=== PATIENT | male | born 1990 | race Hispanic/Latino ===

== ENCOUNTER 2019-09-19 08:36 | Emergency (ER) | payer OTHER, SELFPAY ==
[2019-09-19] MEDS ORDERED: Ondansetron ODT 4 MG TAB ONE (09:03)
== END 2019-09-19 09:36 | disposition home or self-care (01) ==
LOC: ERS 08:36
DX: Z20.828 Contact with and (suspected) exposure to other viral communicable diseases (principal)
CPT/HCPCS: 93005; Q0162

== ENCOUNTER 2019-09-23 12:45 | Emergency (ER) | payer OTHER, SELFPAY | END 2019-09-23 13:45 | disposition home or self-care (01) | LOC: ERS 12:45 | DX: U07.1 COVID-19 (principal) | CPT/HCPCS: 99283 ==